=== PATIENT | female | born 2000 | race Caucasian/White ===

== ENCOUNTER 2019-02-08 13:06 | Outpatient (CLI) | payer BC ==
[~2019-02-08] VITALS: Ht 162.6 cm; Wt 86.1 kg
[2019-02-08 13:43] VITALS: Ht 162.6 cm; Wt 86.1 kg
[2019-02-08 13:44] VITALS: BP 101/54
[2019-02-08] MEDS ORDERED: PREN1TAB71 PO (13:45)
--- NOTE | 2019-02-08 15:23 | TRIAGE ---
OB Triage Datetime Report Generated by CPN: 02/08/2019 15:23 Datetime: 02/08/2019 15:07 Comments: orders to d/c and send to er Datetime: 02/08/2019 14:18 Stage of : OB Triage Labor Evaluation Frequency: 0 Resting Tone [place]: Relaxed Pain Assessment Pain Scale: 9 Pain Type: Ache Pain Location: Other Pain Assessment Comments: ALL OVER BODY Datetime: 02/08/2019 13:32 Stage of : OB Triage Assessment Type: Triage Maternal Assessment Level of Consciousness: Fully Conscious DTR's/Clonus: DTRs 2+; No Clonus Headache: Denies Blurred Vision: No Respiratory Effort: Unlabored; Regular Rhythm; Equal Expansion Breath Sounds, Left: Clear and Equal Breath Sounds, Right: Clear and Equal Nausea/Vomiting: Denies RUQ Epigastric Pain: Denies Lower Extremities Edema: Right Lower Extremity Degree: NOTED REDNESS AND SWELLING TOP OF FOOT Upper Extremities Edema: None Degree: None Facial Edema: None Fall Risk Assessment History of Falling: (0) No Secondary Diagnosis: (0) No Ambulatory Aid: (0) Bedrest/Nurse Assist IV Therapy: (0) No Gait: (0) Normal/Bedrest/Immobile Mental Status: (0) Oriented to Own Ability Fall Score: 0 Fall Risk Score Definition: No Risk: No action required Heart Rate Monitor Mode: Doppler Pain Assessment Pain Scale: 9 Pain Presence: Intermittent Pain Type: Ache Pain Location: ALL OVER BODY Datetime: 02/08/2019 13:31 Time of Arrival: 02/08/2019 12:59 EGA: 22.0 Arrived By: Ambulatory Arrived From: Home Chief Complaint: [place] ALL OVER BODY LIKE A BRUISE Movement: Present Contractions: Denies/Absent Rupture of Membranes: Denies Vaginal Bleeding: None Vaginal Discharge: Denies Recent Sexual Intercouse: Denies Abdominal Trauma: Not Applicable Patient Complaints: Other Time Provider Notified: 02/08/2019 15:15 Provider Notified: dr. delatorre Initial Plan: doppler
--- NOTE | 2019-02-26 16:48 | PN ---
Triage Information Date/Time Reason for visit: Foot pain Weeks of Gestation 22 weeks /Para -0-0-1 Diabetes: none Diabetes management: diet controlled Objective Heart Rate: 140's Contractions: None Disposition: Discharge Assessment/Plan 18 years old 2 para 1-0-0-1 with single intrauterine at 22 weeks with a ONDINA of 05/14/2019 complaining of tooth pain for 3 days. She states good movement. She denies nausea, vomiting, shortness of breath, chest pain, headache, visual changes, vaginal bleeding or LOF. -FHR: No sign of metabolic acidosis- Category I -Contractions: None -Unremarkable physical exam -Symptoms and sign of labor, preeclampsia, kick count discussed with patient, she voiced understanding. All of her questions answered. -Patient was discharged home in stable condition with the appropriate discharge instructions provided. I would like patient to have close follow-up with her primary physician or outpatient clinic in 1-2 days or return to triage for worsening symptoms or any other urgent concerns. ANNIE MURRIETA Feb 26, 2019 16:48
== END 2019-02-08 15:20 | disposition home or self-care (01) ==
LOC: L-D 13:06 → OBT 13:06
PROVIDERS: ATTEND Obstetrics & Gynecology
DX: O26.892 Other specified pregnancy related conditions, second trimester (principal); Z3A.22 22 weeks gestation of pregnancy; R10.2 Pelvic and perineal pain
CPT/HCPCS: G0463